=== PATIENT | male | born 1960 | race Caucasian/White ===

== ENCOUNTER 2020-01-06 15:58 | Emergency (ER) | payer SELFPAY ==
[~2020-01-06] VITALS: Ht 190.5 cm; Wt 81.8 kg
[2020-01-06 16:59] LABS: BASO % 1 % (0-3); EOS # 0.3 x10^3/uL (0.0-0.7); EOS % 4 % (0-3); HEMATOCRIT 48.8 % (39.0-53.0); LYMPH # 1.6 x10^3/uL (1.0-4.8); LYMPH % 27 % (24-48); MEAN CORPUSCULAR HEMOGLOBIN 35 pg (25-35); MEAN CORPUSCULAR HGB CONC 35 g/dL (31-37); MEAN CORPUSCULAR VOLUME 99 fL (79-100); MONO # 0.5 x10^3/uL (0.0-1.1); MONO % 9 % (0-9); NEUT # 3.6 x10^3/uL (1.8-7.7); NEUT % 60 % (31-73); PLATELET COUNT 200 x10^3/uL (140-400); RED BLOOD COUNT 4.92 x10^6/uL (4.30-5.70); RED CELL DISTRIBUTION WIDTH 13.5 % (11.5-14.5)
--- NOTE | 2020-01-06 16:59 | EKG ---
[facility] [address] [place] [address] Test Date: 2020-01-06 Test Time: 16:09:42 Pat Name: BALBIR RODRIGUEZ Department: Room: Gender: Heel Cutter: : 1960 Requested By: WILY CLIEN Order Number: [id number] Reading MD: Derrell Brown Measurements Intervals [place] Rate: 94 P: 64 OK: 158 QRS: 265 QRSD: 104 T: 64 QT: 332 QTc: 415 Interpretive Statements SINUS RHYTHM Electronically Signed On 01-07-2020 12:23:43 CDT by Derrell Brown
[2020-01-06 17:03] LABS: CALCIUM 9.2 mg/dL (8.5-10.1); GFR 76.2; POTASSIUM 4.1 mmol/L (3.5-5.1)
[2020-01-06 17:09] LABS: ALBUMIN 3.5 g/dL (3.4-5.0); ALBUMIN/GLOBULIN RATIO 0.9 (1.0-1.7); TOTAL BILIRUBIN 0.3 mg/dL (0.2-1.0); TOTAL PROTEIN 7.3 g/dL (6.4-8.2)
[2020-01-06 17:12] LABS: PROTHROMBIN TIME PATIENT 12.4 SEC (11.7-14.0)
[2020-01-06] MEDS ORDERED: IV NORMAL SALINE 1000ML BAG 1,000 ML IV ONE (17:15)
[2020-01-06] MEDS ORDERED: MULTIVIT INFUSN,ADULT 4,VIT K 10 ML, THIAMINE INJ 100 MG, FOLIC ACID INJ 1 MG in IV NOR... IV ONE (17:30)
--- NOTE | 2020-01-06 17:32 | PHYS DOC ---
Past Medical History Past Medical History: COPD Past Surgical History: No Surgical History Smoking Status: Current Every Day Smoker Additional Information: 0.5/ppd Alcohol Use: None General Adult EDM: Chief Complaint: WEAKNESS/GENERALIZED HPI: HPI: Patient is a 59 year old male who presents with here by EMS found intoxicated with alcohol of which patient states he drank 1 pint today, homeless, in a parking lot passed out. Patient does wake up and talk but is very sleepy. Patient states he is had 2 months of intermittent trouble urinating and Left groin pain. This is his only complaint. Patient has a history of alcoholism, COPD, smoker. Patient denies chest pain, shortness of air, headache, dizziness, vision changes, numbness or tingling, abdominal pain, nausea vomiting, diarrhea, back pain, neck pain. Review of Systems: Review of Systems: Constitutional: Denies fever or chills. Alcohol intoxication [] Eyes: Denies change in visual acuity. [] HENT: Denies nasal congestion or sore throat. [] Respiratory: Denies cough or shortness of breath. [] Cardiovascular: Denies chest pain or edema. [] GI: Denies abdominal pain, nausea, vomiting, bloody stools or diarrhea. [] : Denies dysuria. Intermittent trouble urinating [] Musculoskeletal: Denies back pain or joint pain. Right groin intermittent pain [] Integument: Denies rash. [] Neurologic: Denies headache, focal weakness or sensory changes. AMS[] Endocrine: Denies polyuria or polydipsia. [] Lymphatic: Denies swollen glands. [] Psychiatric: Denies depression or anxiety. [] Heart Score: Risk Factors: Risk Factors: DM, Current or recent (<one month) smoker, HTN, HLP, family history of CAD, obesity. Risk Scores: Score 0 - 3: 2.5% MACE over next 6 weeks - Discharge Home Score 4 - 6: 20.3% MACE over next 6 weeks - Admit for Clinical Observation Score 7 - 10: 72.7% MACE over next 6 weeks - Early Invasive Strategies Current Medications: Current Medications Medications (Trade) Dose Ordered Sig/Aishwarya Start Time Stop Time Status Last Admin Dose Admin Multivitamins 10 ml/Thiamine HCl 100 mg/Folic Acid 1 mg/Sodium Chloride 1,011.2 ml @ 1,000.088 mls/hr 1X ONCE 01/06/20 17:30 01/06/20 18:30 Sodium Chloride 1,000 ml @ 1,000 mls/hr 1X ONCE 01/06/20 17:15 01/06/20 18:14 Allergies: Allergies: Allergies Coded Allergies Type Severity Reaction Last Updated Verified No Known Drug Allergies 01/06/20 No Physical Exam: PE: Constitutional: Well developed, well nourished, no acute distress, non-toxic appearance. [] HENT: Normocephalic, atraumatic, bilateral external ears normal, oropharynx moist, no oral exudates, nose normal. [] Eyes: PERRLA, EOMI, conjunctiva normal, no discharge. [] Neck: Normal range of motion, no tenderness, supple, no stridor. [] Cardiovascular:Heart rate regular rhythm, no murmur [] Lungs & Thorax: Bilateral breath sounds clear to auscultation [] Abdomen: Bowel sounds normal, soft, no tenderness, no masses, no pulsatile masses. [] Skin: Warm, dry, no erythema, no rash. [] Back: No tenderness, no CVA tenderness. [] Extremities: No tenderness, no cyanosis, no clubbing, ROM intact, no edema. [] Neurologic: Alert and oriented X 3, normal motor function, normal sensory function, no focal deficits noted. AMS. [] Psychologic: Affect normal, judgement normal, mood normal. [] Current Patient Data: Labs: Laboratory Tests Test 01/06/20 16:05 White Blood Count 6.0 x10^3/uL (4.0-11.0) Red Blood Count 4.92 x10^6/uL (4.30-5.70) Hemoglobin 17.0 g/dL (13.0-17.5) Hematocrit 48.8 % (39.0-53.0) Mean Corpuscular Volume 99 fL (79-100) Mean Corpuscular Hemoglobin 35 pg (25-35) Mean Corpuscular Hemoglobin Concent 35 g/dL (31-37) Red Cell Distribution Width 13.5 % (11.5-14.5) Platelet Count 200 x10^3/uL (140-400) Neutrophils (%) (Auto) 60 % (31-73) Lymphocytes (%) (Auto) 27 % (24-48) Monocytes (%) (Auto) 9 % (0-9) Eosinophils (%) (Auto) 4 % (0-3) H Basophils (%) (Auto) 1 % (0-3) Neutrophils # (Auto) 3.6 x10^3/uL (1.8-7.7) Lymphocytes # (Auto) 1.6 x10^3/uL (1.0-4.8) Monocytes # (Auto) 0.5 x10^3/uL (0.0-1.1) Eosinophils # (Auto) 0.3 x10^3/uL (0.0-0.7) Basophils # (Auto) 0.0 x10^3/uL (0.0-0.2) Sodium Level 139 mmol/L (136-145) Potassium Level 4.1 mmol/L (3.5-5.1) Chloride Level 102 mmol/L (98-107) Carbon Dioxide Level 29 mmol/L (21-32) Anion Gap 8 (6-14) Blood Urea Nitrogen 18 mg/dL (8-26) Creatinine 1.0 mg/dL (0.7-1.3) Estimated GFR (Cockcroft-Gault) 76.2 BUN/Creatinine Ratio 18 (6-20) Glucose Level 216 mg/dL (70-99) H Calcium Level 9.2 mg/dL (8.5-10.1) Magnesium Level 2.0 mg/dL (1.8-2.4) Total Bilirubin 0.3 mg/dL (0.2-1.0) Aspartate Amino Transferase (AST) 124 U/L (15-37) H Alanine Aminotransferase (ALT) 120 U/L (16-63) H Alkaline Phosphatase 81 U/L (46-116) Troponin I Quantitative < 0.017 ng/mL (0.000-0.055) Total Protein 7.3 g/dL (6.4-8.2) Albumin 3.5 g/dL (3.4-5.0) Albumin/Globulin Ratio 0.9 (1.0-1.7) L Lipase 140 U/L (73-393) Laboratory Tests 01/06/20 16:05 Laboratory Tests 01/06/20 16:05 Vital Signs: Vital Signs Date Time Temp Pulse Resp B/P (MAP) Pulse Ox O2 Delivery O2 Flow Rate FiO2 01/06/20 16:00 97.8 91 20 129/90 (103) 97 Room Air 97.8 EKG: EK and read by Dr. Millan as sinus rhythm and no STEMI. [] Radiology/Procedures: Radiology/Procedures: [] Impression: IMAGING REPORT Signed PATIENT: BALBIR RODRIGUEZ ACCOUNT: [id number] : 1960 LOCATION: ER AGE: 59 SEX: M EXAM STATUS: REG ER ORD. PHYSICIAN: WILY CLINE DEAN OF [facility] REASON: ams, possible fall PROCEDURE: CT HEAD AND CERVICAL SPINE WO EXAM: CT head and cervical spine without contrast INDICATION: Altered mental status, possible fall COMPARISON: None TECHNIQUE: Axial CT imaging through the head without intravenous contrast. Sagittal and coronal reformats of the cervical spine were obtained. One or more of the following individualized dose reduction techniques were utilized for this examination: 1. Automated exposure control 2. Adjustment of the mA and/or kV according to patient size 3. Use of iterative reconstruction technique. FINDINGS: CT head: The ventricles and sulci are mildly enlarged. There is mild periventricular and deep white matter hypoattenuation. Blake-white matter differentiation is maintained. No intracranial hemorrhage, acute infarct, or mass lesion. The skull and scalp are intact. Visualized portion of the paranasal sinuses and mastoid air cells are clear. Globes and orbits are intact. CT cervical spine: No acute fracture. Alignment is normal. There is mild disc space narrowing throughout the cervical spine with bulky anterior osteophytes. There is moderate bilateral facet arthrosis at C3-C4, C4-C5 and C5-C6. Moderate bilateral foraminal narrowing at C4-C5 and milder foraminal narrowing at C5-6. No bony canal narrowing. Prevertebral soft tissues normal. There are calcifications in the carotid bifurcations. IMPRESSION: 1. No acute intracranial abnormality. 2. No acute osseous abnormality of the cervical spine. Mild to moderate degenerative disc disease and facet arthrosis. Electronically signed by: Ying Bustamante MD (01/06/2020 6:14 PM) [id number] DICTATED and SIGNED BY: YIGN BUSTAMANTE MD DATE: 01/06/20 [address] [facility] [address] [place] [address] IMAGING REPORT Signed PATIENT: BALBIR RODRIGUEZ ACCOUNT: [id number] : 1960 LOCATION: ER AGE: 59 SEX: M EXAM STATUS: REG ER ORD. PHYSICIAN: WILY CLINE APRN REASON: GROIN PAIN, TROUBLE URINATING PROCEDURE: CT ABDOMEN PELVIS WO CONTRAST INDICATION: Reason: GROIN PAIN, TROUBLE URINATING / Spl. Instructions: / History: COMPARISON: None. TECHNIQUE: Axial CT images obtained through the abdomen and pelvis without contrast. One or more of the following individualized dose reduction techniques were utilized for this examination: 1. Automated exposure control; 2. Adjustment of the mA and/or kV according to patient size; 3. Use of iterative reconstruction technique. FINDINGS: Linear opacities at the lung bases which can be seen with atelectasis. There are some cystic changes and increased aeration at the lung bases which could be from asthma or emphysema. Coronary artery calcific atherosclerosis. Infrarenal abdominal aortic ectasia with severe calcific atherosclerosis. Large left-sided inguinal hernia with colon seen within the hernia sac. Liver is low density which can be seen with fatty infiltration. Limited assessment of the pancreas secondary to lack of contrast. Spleen is unremarkable. No hydronephrosis. Urinary bladder is partially distended. Colonic diverticulosis. The appendix does not appear grossly inflamed. Degenerative changes of the spine with multilevel central canal and neural foraminal stenosis. IMPRESSION: * Large left inguinal hernia with colon extending into the hernia sac. There is not a definite associated obstruction at this time. * No hydronephrosis. * Liver is low density. Nonspecific but can be seen with fatty infiltration. * Severe calcific atherosclerosis. Electronically signed by: Yu Vieyra MD (01/06/2020 6:17 PM) [id number] DICTATED and SIGNED BY: YU VIEYRA MD DATE: 01/06/201816 Course & Med Decision Making: Course & Med Decision Making Pertinent Labs and Imaging studies reviewed. (See chart for details) See HPI. But will open his eyes and respond with a sternal rub. He was alert and awake with nurse when she triaged. He is moving around in bed and does not seem to be having any focal weaknesses. Lungs are clear to auscultation all lobes. No trauma is seen to the patient's body or head or face. No tenderness to the neck or spine it was elicited with palpation. And there is no deformity felt or seen. No deformities felt or seen with any joints. There is no swelling. Vital signs within normal limits. Abdomen is soft and non-tender. Patient states he does not want any help for his alcoholism. Lab work unremarkable. CT shows left inguinal hernia. This is likely what is causing him his pain for the last 2 months. Chest x-ray shows no acute findings. Patient received a liter of normal saline and a banana bag. Vital signs are stable. He is alert and oriented x4. He is ambulatory with a steady gait. Patient again states he does not want help for his alcoholism. Urinalysis shows no infection and it does not show dehydration. Patient to be discharged to a [facility]. [] Dragon Disclaimer: Dragon Disclaimer: This electronic medical record was generated, in whole or in part, using a voice recognition dictation system. Departure Departure Impression: Primary Impression: Alcohol intoxication Qualified Codes: F10.920 - Alcohol use, unspecified with intoxication, uncomplicated Additional Impression: Left inguinal hernia Disposition: 01 HOME, SELF-CARE Condition: STABLE Referrals: NO PCP (PCP) XIOMARA CARPIO MD Patient Instructions: Alcohol Intoxication, Inguinal Hernia, Adult Additional Instructions: Follow-up with a primary care physician. Also follow-up with the surgeon for your hernia. Stop drinking alcohol. Justicifation of Admission Dx: Justifications for Admission: Justification of Admission Dx: N/A WILY CLINE DEAN OF [facility]ACULT[facility] Jan 06, 2020 17:32
--- NOTE | 2020-01-06 18:18 | RAD ---
EXAM: CT head and cervical spine without contrast INDICATION: Altered mental status, possible fall COMPARISON: None TECHNIQUE: Axial CT imaging through the head without intravenous contrast. Sagittal and coronal reformats of the cervical spine were obtained. One or more of the following individualized dose reduction techniques were utilized for this examination: 1. Automated exposure control 2. Adjustment of the mA and/or kV according to patient size 3. Use of iterative reconstruction technique. FINDINGS: CT head: The ventricles and sulci are mildly enlarged. There is mild periventricular and deep white matter hypoattenuation. Blake-white matter differentiation is maintained. No intracranial hemorrhage, acute infarct, or mass lesion. The skull and scalp are intact. Visualized portion of the paranasal sinuses and mastoid air cells are clear. Globes and orbits are intact. CT cervical spine: No acute fracture. Alignment is normal. There is mild disc space narrowing throughout the cervical spine with bulky anterior osteophytes. There is moderate bilateral facet arthrosis at C3-C4, C4-C5 and C5-C6. Moderate bilateral foraminal narrowing at C4-C5 and milder foraminal narrowing at C5-6. No bony canal narrowing. Prevertebral soft tissues normal. There are calcifications in the carotid bifurcations. IMPRESSION: 1. No acute intracranial abnormality. 2. No acute osseous abnormality of the cervical spine. Mild to moderate degenerative disc disease and facet arthrosis. Electronically signed by: Ying Bustamante MD (01/06/2020 6:14 PM) [id number]
--- NOTE | 2020-01-06 18:20 | RAD ---
INDICATION: Reason: GROIN PAIN, TROUBLE URINATING / Spl. Instructions: / History: COMPARISON: None. TECHNIQUE: Axial CT images obtained through the abdomen and pelvis without contrast. One or more of the following individualized dose reduction techniques were utilized for this examination: 1. Automated exposure control; 2. Adjustment of the mA and/or kV according to patient size; 3. Use of iterative reconstruction technique. FINDINGS: Linear opacities at the lung bases which can be seen with atelectasis. There are some cystic changes and increased aeration at the lung bases which could be from asthma or emphysema. Coronary artery calcific atherosclerosis. Infrarenal abdominal aortic ectasia with severe calcific atherosclerosis. Large left-sided inguinal hernia with colon seen within the hernia sac. Liver is low density which can be seen with fatty infiltration. Limited assessment of the pancreas secondary to lack of contrast. Spleen is unremarkable. No hydronephrosis. Urinary bladder is partially distended. Colonic diverticulosis. The appendix does not appear grossly inflamed. Degenerative changes of the spine with multilevel central canal and neural foraminal stenosis. IMPRESSION: * Large left inguinal hernia with colon extending into the hernia sac. There is not a definite associated obstruction at this time. * No hydronephrosis. * Liver is low density. Nonspecific but can be seen with fatty infiltration. * Severe calcific atherosclerosis. Electronically signed by: Ke Mayorga MD (01/06/2020 6:17 PM) [id number]
[2020-01-06 18:33] LABS: AMPHETAMINE/METHAMPHETAMINE NEG (NEG); BARBITURATES NEG (NEG); BENZODIAZEPINES NEG (NEG); CANNABINOIDS NEG (NEG); COCAINE NEG (NEG); METHADONE NEG (NEG); OPIATES NEG (NEG); PHENCYCLIDINE NEG (NEG)
[2020-01-06 18:42] LABS: BILIRUBIN,URINE NEGATIVE (NEG); CLARITY,URINE CLEAR; COLOR,URINE YELLOW; NITRITE,URINE NEGATIVE (NEG); PROTEIN,URINE NEGATIVE (NEG-TRACE); UROBILINOGEN,URINE 0.2 mg/dL (0.2 mg/dL)
[2020-01-06 18:44] LABS: BACTERIA,URINE FEW /HPF (0-FEW); HYALINE CASTS, URINE FEW /HPF; SQUAMOUS EPITHELIAL CELL,UR OCC /LPF
[2020-01-06 19:34] VITALS: BP 168/94
== END 2020-01-06 20:35 | disposition home or self-care (01) ==
LOC: ER 15:58
DX: F10.229 Alcohol dependence with intoxication, unspecified (principal); R10.32 Left lower quadrant pain; J44.9 Chronic obstructive pulmonary disease, unspecified; F17.200 Nicotine dependence, unspecified, uncomplicated
CPT/HCPCS: 36415; 70450; 71045; 72125; 74176; 80053; 80307; 81001; 83690; 83735; 84484; 85025; 85610; 93005; 96365; 99285; G0480; J3411; J3490; J7030